=== PATIENT | female | born 1950 | race Asian ===

== ENCOUNTER 2017-07-26 09:42 | Day surgery (SDC) | payer OTHER ==
[2017-07-26] MEDS ORDERED: FENTAnyl 50 MCG/ML VIAL (12:44)
[2017-07-26] MEDS ORDERED: MIDAZOLAM 1 MG/ML 2 ML INJ ×2 (12:45)
== END 2017-07-26 15:04 | disposition home or self-care (01) ==
LOC: GIL 09:42
DX: Z12.11 Encounter for screening for malignant neoplasm of colon (principal); D12.5 Benign neoplasm of sigmoid colon; K21.9 Gastro-esophageal reflux disease without esophagitis; K29.70 Gastritis, unspecified, without bleeding; K64.8 Other hemorrhoids; E11.9 Type 2 diabetes mellitus without complications; I10 Essential (primary) hypertension; E78.5 Hyperlipidemia, unspecified
CPT/HCPCS: 43239; 87081; 88305

== ENCOUNTER 2018-12-14 20:46 | Inpatient (IN) | payer OTHER ==
[2018-12-14] MEDS: ALBUTEROL 0.083% (NEB) 2.5 MG/3 ML AMP NEB (21:52)
[2018-12-14] MEDS: IPRATROPIUM (NEB) 0.5 MG/2.5 ML AMP NEB (21:53)
[2018-12-14 22:07] LABS: ADD MAN DIFF? NO
[2018-12-14 22:10] LABS: WHITE BLOOD COUNT 12.7 10^3/ul (4.8-10.8)
[2018-12-14 22:10] LABS: BASOPHIL # 0.1 10^3/ul (0.0-0.1); BASOPHILS % 0.9 % (0.0-2.0); EOSINOPHILS # 0.5 10^3/ul (0.0-0.5); EOSINOPHILS % 4.1 % (0.0-7.0); HEMATOCRIT 37.2 % (37.0-47.0); HEMOGLOBIN 12.1 g/dl (12.0-16.0); LYMPHOCYTES # 3.4 10^3/ul (0.8-2.9); LYMPHOCYTES % 26.8 % (15.0-51.0); MEAN CORPUSCULAR HEMOGLOBIN 27.4 pg (29.0-33.0); MEAN CORPUSCULAR HGB CONC 32.5 g/dl (32.0-37.0); MEAN CORPUSCULAR VOLUME 84.4 fl (82.0-101.0); MEAN PLATELET VOLUME 10.3 fl (7.4-10.4); MONOCYTE # 1.3 10^3/ul (0.3-0.9); MONOCYTES % 10.5 % (0.0-11.0); NEUTROPHIL # 7.1 10^3/ul (1.6-7.5); NEUTROPHILS % 56.4 % (39.0-77.0); PLATELET COUNT 460 10^3/UL (140-415); RED BLOOD COUNT 4.41 10^6/ul (4.20-5.40); RED CELL DISTRIBUTION WIDTH 15.3 % (11.5-14.5)
[2018-12-14 22:30] LABS: INR 0.86; PROTIME 11.8 Sec (11.9-14.9); PT RATIO 0.9
[2018-12-14 22:31] LABS: PARTIAL THROMBOPLASTIN TIME 32.3 Sec (23.0-35.0)
[2018-12-14 22:35] LABS: ALANINE AMINOTRANSFERASE 16 IU/L (13-69); ALBUMIN 4.3 g/dl (3.3-4.9); ALBUMIN/GLOBULIN RATIO 1.16; ALKALINE PHOSPHATASE 95 IU/L (42-121); ANION GAP 14 (5-13); ASPARTATE AMINO TRANSFERASE 23 IU/L (15-46); BILIRUBIN,INDIRECT 0.4 mg/dl (0-1.1); BILIRUBIN,TOTAL 0.4 mg/dl (0.2-1.3); BLOOD UREA NITROGEN 16 mg/dl (7-20); CALCIUM 10.5 mg/dl (8.4-10.2); CARBON DIOXIDE 23 mmol/L (21-31); CHLORIDE 103 mmol/L (97-110); CREATININE 0.78 mg/dl (0.44-1.00); Estimated GFR > 60 mL/min (>60); GLUCOSE 214 mg/dl (70-220); POTASSIUM 3.8 mmol/L (3.5-5.1); SODIUM 140 mmol/L (135-144)
[2018-12-14 22:46] LABS: TROPONIN-I 0.015 ng/ml (0.000-0.120)
[2018-12-14] MEDS: SODIUM CHLORIDE 0.9% 1L BAG IV* (23:13)
[2018-12-14] MEDS: CEFEPIME 2GM/50 ML (PMX) 50 ML IVPB (23:18)
[2018-12-14] MEDS: VANCOMYCIN 1 GM (PMX) 250 ML IVPB (23:55)
[2018-12-15 00:37] LABS: LACTIC ACID 4.7 mmol/L (0.5-2.0)
[2018-12-15] MEDS ORDERED: ONDANSETRON 4 MG INJ IV (02:00)
[2018-12-15] MEDS ORDERED: NACL 0.9% 3 ML SYG IV (02:00)
[2018-12-15] MEDS: ACCU-CHEK XX (02:00)
[2018-12-15] MEDS ORDERED: ACETAMINOPHEN 325 MG TAB PO (02:00)
[2018-12-15] MEDS ORDERED: GLUCAGON 1 MG INJ IM (02:30)
[2018-12-15] MEDS ORDERED: GLUCOSE GEL 15 GRAM TUBE BUCCAL (02:30)
[2018-12-15] MEDS ORDERED: DEXTROSE 50% 50 ML SYRINGE IV ×2 (02:30)
[2018-12-15] MEDS ORDERED: GLUCOSE GEL 15 GRAM TUBE PO ×2 (02:30)
[2018-12-15] MEDS: IBUPROFEN 600 MG TAB PO (05:00)
[2018-12-15] MEDS: GUAIFENESIN 20 MG/ML 5ML CUP PO (05:41)
[2018-12-15] MEDS: PANTOPRAZOLE (EC) 40 MG TAB PO (05:42)
[2018-12-15] MEDS: INSULIN ASPART [NOVOLOG] 3 ML PEN SC ×4 (07:46→20:56)
[2018-12-15] MEDS: FUROSEMIDE 40 MG TAB PO (08:33)
[2018-12-15] MEDS: METOPROLOL 25 MG TAB PO ×2 (08:33→20:51)
[2018-12-15] MEDS ORDERED: ALBUTEROL/IPRATROPIUM (NEB) 3 ML AMP HHN (11:00)
[2018-12-15 11:16] LABS: B-TYPE NATRIURETIC PEPTIDE 916 PG/ML (0-125)
[2018-12-15] MEDS: AZITHROMYCIN 250 MG TAB PO (11:43)
[2018-12-15] MEDS: CEFTRIAXONE 1 GM/50 ML (PMX) 50 ML IVPB (11:43)
[2018-12-15] MEDS: ATORVASTATIN 40 MG TAB PO (20:50)
[2018-12-16] MEDS: ACCU-CHEK XX (02:00)
[2018-12-16] MEDS: PANTOPRAZOLE (EC) 40 MG TAB PO (05:29)
[2018-12-16 05:56] LABS: ADD MAN DIFF? NO
[2018-12-16 06:00] LABS: WHITE BLOOD COUNT 9.4 10^3/ul (4.8-10.8)
[2018-12-16 06:00] LABS: BASOPHIL # 0.1 10^3/ul (0.0-0.1); BASOPHILS % 0.9 % (0.0-2.0); EOSINOPHILS # 0.5 10^3/ul (0.0-0.5); EOSINOPHILS % 5.3 % (0.0-7.0); HEMATOCRIT 36.9 % (37.0-47.0); HEMOGLOBIN 11.9 g/dl (12.0-16.0); LYMPHOCYTES # 2.9 10^3/ul (0.8-2.9); LYMPHOCYTES % 30.5 % (15.0-51.0); MEAN CORPUSCULAR HEMOGLOBIN 27.2 pg (29.0-33.0); MEAN CORPUSCULAR HGB CONC 32.2 g/dl (32.0-37.0); MEAN CORPUSCULAR VOLUME 84.2 fl (82.0-101.0); MEAN PLATELET VOLUME 10.5 fl (7.4-10.4); MONOCYTES % 10.8 % (0.0-11.0); NEUTROPHIL # 4.8 10^3/ul (1.6-7.5); NEUTROPHILS % 50.9 % (39.0-77.0); PLATELET COUNT 408 10^3/UL (140-415); RED BLOOD COUNT 4.38 10^6/ul (4.20-5.40); RED CELL DISTRIBUTION WIDTH 15.4 % (11.5-14.5)
[2018-12-16 06:44] LABS: ALANINE AMINOTRANSFERASE 16 IU/L (13-69); ALBUMIN/GLOBULIN RATIO 1.14; ALKALINE PHOSPHATASE 76 IU/L (42-121); ANION GAP 11 (5-13); ASPARTATE AMINO TRANSFERASE 19 IU/L (15-46); BILIRUBIN,INDIRECT 0.5 mg/dl (0-1.1); BILIRUBIN,TOTAL 0.5 mg/dl (0.2-1.3); BLOOD UREA NITROGEN 16 mg/dl (7-20); CALCIUM 10.3 mg/dl (8.4-10.2); CARBON DIOXIDE 28 mmol/L (21-31); CHLORIDE 101 mmol/L (97-110); CHOL/HDL RATIO 3.7 RATIO; CHOLESTEROL 162 mg/dl (100-200); CREATININE 0.59 mg/dl (0.44-1.00); Estimated GFR > 60 mL/min (>60); GLUCOSE 158 mg/dl (70-220); HDL CHOLESTEROL 43 mg/dl (35-98); LDL CHOLESTEROL,CALCULATED 90 mg/dl; MAGNESIUM 1.4 mg/dl (1.7-2.5); PHOSPHORUS 4.3 mg/dl (2.5-4.9); POTASSIUM 3.9 mmol/L (3.5-5.1); SODIUM 140 mmol/L (135-144); TOTAL PROTEIN 7.5 g/dl (6.1-8.1); TRIGLYCERIDES 145 mg/dl (0-149)
[2018-12-16] MEDS: AZITHROMYCIN 250 MG TAB PO (08:20)
[2018-12-16] MEDS: INSULIN ASPART [NOVOLOG] 3 ML PEN SC ×4 (08:21→21:00)
[2018-12-16] MEDS: METOPROLOL 25 MG TAB PO ×2 (08:21→21:05)
[2018-12-16] MEDS: FUROSEMIDE 40 MG TAB PO (08:21)
[2018-12-16] MEDS: CEFTRIAXONE 1 GM/50 ML (PMX) 50 ML IVPB (11:12)
[2018-12-16] MEDS: GUAIFENESIN 20 MG/ML 5ML CUP PO ×2 (11:13→19:50)
[2018-12-16 12:51] LABS: LACTIC ACID 2.9 mmol/L (0.5-2.0)
[2018-12-16 12:56] LABS: TROPONIN-I < 0.012 ng/ml (0.000-0.120)
[2018-12-16] MEDS: IBUPROFEN 600 MG TAB PO (21:04)
[2018-12-16] MEDS: ATORVASTATIN 40 MG TAB PO (21:05)
[2018-12-17] MEDS: ACCU-CHEK XX (01:55)
[2018-12-17] MEDS: PANTOPRAZOLE (EC) 40 MG TAB PO (05:51)
[2018-12-17] MEDS: GUAIFENESIN 20 MG/ML 5ML CUP PO (08:21)
[2018-12-17] MEDS: METOPROLOL 25 MG TAB PO (08:22)
[2018-12-17] MEDS: FUROSEMIDE 40 MG TAB PO (08:22)
[2018-12-17] MEDS: AZITHROMYCIN 500 MG TAB PO (08:22)
[2018-12-17] MEDS: INSULIN ASPART [NOVOLOG] 3 ML PEN SC ×2 (08:25→12:00)
[2018-12-17] MEDS: CEFTRIAXONE 1 GM/50 ML (PMX) 50 ML IVPB (11:51)
== END 2018-12-17 15:25 | disposition home or self-care (01) | DRG 871 ==
LOC: 6WM 23:35 → E/R 20:46 → 2NE 12-16 19:10
DX: A41.9 Sepsis, unspecified organism (principal); J18.9 Pneumonia, unspecified organism; E87.2 Acidosis; E11.8 Type 2 diabetes mellitus with unspecified complications; I50.9 Heart failure, unspecified; E78.5 Hyperlipidemia, unspecified; J06.9 Acute upper respiratory infection, unspecified
CPT/HCPCS: 36415; 71045; 80053; 80061; 82962; 83036; 83605; 83735; 83880; 84100; 84443; 84484; 85025; 85610; 85730; 87040-91; 93005; 94664; 96365; 99285-25